=== PATIENT | female | born 1995 | race Caucasian/White ===

== ENCOUNTER 2019-11-19 00:03 | Emergency (ER) | payer OTHER ==
[~2019-11-19] VITALS: Ht 154.9 cm; Wt 86.6 kg
[2019-11-19 00:10] VITALS: Ht 154.9 cm; Wt 86.6 kg
[2019-11-19 00:59] VITALS: BP 119/81
== END 2019-11-19 00:59 | disposition home or self-care (01) ==
LOC: ED 00:03
DX: S40.861A Insect bite (nonvenomous) of right upper arm, initial encounter (principal); L03.113 Cellulitis of right upper limb; L08.9 Local infection of the skin and subcutaneous tissue, unspecified; E03.9 Hypothyroidism, unspecified; W57.XXXA Bitten or stung by nonvenomous insect and other nonvenomous arthropods, initial encounter; Y93.89 Activity, other specified; Y92.89 Other specified places as the place of occurrence of the external cause; Y99.8 Other external cause status

== ENCOUNTER 2020-05-25 21:54 | Emergency (ER) | payer OTHER ==
[~2020-05-25] VITALS: Ht 154.9 cm; Wt 86.2 kg
[2020-05-25 21:58] VITALS: BP 116/79; Ht 154.9 cm; Wt 86.2 kg
== END 2020-05-25 23:20 | disposition home or self-care (01) ==
LOC: ED 21:54
DX: U07.1 COVID-19 (principal); E03.9 Hypothyroidism, unspecified; R19.7 Diarrhea, unspecified